=== PATIENT | female | born 1990 | race Hispanic/Latino ===

== ENCOUNTER 2017-09-23 16:24 | Emergency (ER) | payer OTHER ==
[2017-09-23 16:44] VITALS: BMI 24.5
[2017-09-23 16:48] VITALS: RESP 18
[2017-09-23] MEDS ORDERED: Sodium Chloride 0.9% 1,000 ML IV STA (17:29)
[2017-09-23 17:58] LABS: URINE BILIRUBIN MODERATE (NEGATIVE); URINE BLOOD LARGE (NEGATIVE); URINE GLUCOSE (UA) NEGATIVE (NEGATIVE); URINE KETONE TRACE mg/dL (NEGATIVE); URINE LEUKOCYTE ESTERASE NEGATIVE Leu/uL (NEGATIVE); URINE PROTEIN >=300 mg/dL (<30 mg/dL)
[2017-09-23 18:03] LABS: URINE APPEARANCE SL CLOUDY (CLEAR); URINE COLOR DARK YELLOW (YELLOW)
--- NOTE | 2017-09-23 18:09 | ED PDOC ---
Arrival/HPI - General Chief Complaint: Female Genitourinary Time Seen by Provider: 09/23/17 17:01 Historian: Patient - History of Present Illness Narrative History of Present Illness (Text): 09/23/17 18:06 26 yo F complains of 5 day h/o vaginal bleeding associated with intermittent lower abdominal pain, mostly in the LLQ, associated with nausea and multiple episodes of vomiting, states that she vomited 7 x today. States that she had a c -section 5 months ago and a tubal ligation, concerned that she could be at this time. Otherwise: (-) recent travel, (-) diarrhea, (+) tactle fever 3 days ago, (+) dysuria, (-) sick contacts, (-) eat any food that could cause her current symptoms, (-) vaginal d/c, (-) melena, (-) hematochezia. Has history of prior abdominal surgery. PMD Iggy Past Medical History - Provider Review Nursing Documentation Reviewed: Yes - Infectious Disease Hx of Infectious Diseases: None - Psychiatric Hx Depression: No Hx Emotional Abuse: No Hx Physical Abuse: No Hx Substance Use: Yes (CANNABIS) - Surgical History Hx Section: Yes (x2) Hx Dilation and Curettage: Yes (x1) Hx Tubal Ligation: Yes - Anesthesia Hx Anesthesia: Yes Hx Anesthesia Reactions: No Hx Malignant Hyperthermia: No - Suicidal Assessment Feels Threatened In Home Enviroment: No Family/Social History - Physician Review Nursing Documentation Reviewed: Yes Family/Social History: Unknown Family HX Smoking Status: Heavy Smoker > 10 Cigarettes Daily Hx Alcohol Use: No Hx Substance Use: Yes (CANNABIS) Hx Substance Use Treatment: No Allergies/Home Meds Allergies/Adverse Reactions: Allergies No Known Allergies Allergy (Verified 10/30/16 00:49) Review of Systems - Review of Systems Constitutional: absent: Fatigue, Weight Change, Fevers ENT: absent: Sore Throat, Rhinorrhea, Epistaxis Respiratory: absent: SOB, Cough, Sputum Cardiovascular: absent: Chest Pain, Palpitations, Edema Gastrointestinal: Abdominal Pain, Nausea, Vomiting. absent: Constipation, Appetite Changes Genitourinary Female: Dysuria, Vaginal Bleeding. absent: Frequency, Hematuria Musculoskeletal: absent: Arthralgias, Back Pain, Neck Pain Skin: absent: Rash, Pruritis, Skin Lesions Neurological: absent: Headache, Dizziness, Focal Weakness Physical Exam - Physical Exam Narrative Physical Exam (Text): 09/23/17 18:04 GENERAL APPEARANCE: Patient is awake, alert, oriented x 3, is anxious, in no acute painful distress, laying in bed comfortably. SKIN: Warm, dry; (-) cyanosis, (-) jaundice. EYES: (-) conjunctival pallor, (-) scleral icterus. ENMT: Mucous membranes dry. NECK: (-) tenderness, (-) stiffness, (-) lymphadenopathy. CHEST AND RESPIRATORY: (-) rales, (-) rhonchi, (-) wheezes; breath sounds equal bilaterally. HEART AND CARDIOVASCULAR: (-) irregularity; (-) murmur, (-) gallop. ABDOMEN AND GI: (-) distention. Bowel sounds active; (+) mild LLQ tenderness to deep palpation, (-) Mayfield's, (-) McBurney's, (-) guarding, (-) rebound, (-) palpable masses, (-) CVA tenderness. EXTREMITIES: (-) deformity, (-) edema, (+) distal pulses. NEURO AND PSYCH: Mental status as above; (-) focal findings. Vital Signs Temp Pulse Resp BP Pulse Ox 09/23/17 16:47 98.1 F 81 18 122/85 95 Medical Decision Making ED Course and Treatment: 09/23/17 18:09 26 yo F complains of 5 day h/o vaginal bleeding associated with intermittent lower abdominal pain, associated with nausea and multiple episodes of vomiting, states that she vomited 7 x today. [facility] [place] Plan: -- Labs -- IV fluids -- Urinalysis -- Pepcid / Zofran / Toradol -- Reassess and disposition Labs reviewed : wbc 6.2, K 3.0, AST 188, ALT 170, Alk Phos 145, (in March 2012 patient's LFTs was AST 77, ALT 89) T bili 1.1, lipase wnl, beta quant (-), UA shows +proteins, +nitrate. Patient given KCl 40 mEq PO for low K, Rocephin 1 g IV for UTI, zofran IV 4 mg for mild nausea. On re-evaluation, patient is sitting up in bed comfortably in no acute distress , reports no abdominal pain or nausea at this time. On exam, abdomen remains soft with no tenderness, no guarding, no rebound, neg yudi'ys sign. Diagnostic results d/w the patient, she was notified that her LFTs are elevated and that she has proteins in her urine. Patient advised that she must f/u with her pmd regarding her elevated LFTs and +proteins in the urine for further evaluation. Advised to take medication as prescribed. Return to the emergency room at any time for any new or worsening symptoms. Patient states she fully agrees with and understands discharge instructions. States that she agrees with the plan and disposition. Verbalized and repeated discharge instructions and plan. I have given the patient opportunity to ask any additional questions. - Lab Interpretations Lab Results: 09/23/17 18:15 09/23/17 18:15 Lab Results 09/23/17 18:15: Beta HCG, Quant < 2.39 09/23/17 18:15: Sodium 141, Potassium 3.0 L, Chloride 98, Carbon Dioxide 26, Anion Gap 20, BUN 11, Creatinine 0.7, Est GFR ( Amer) > 60, Est GFR (Non- Af Amer) > 60, Random Glucose 95, Calcium 9.9, Total Bilirubin 1.1, AST 188 H, ALT 170 H, Alkaline Phosphatase 145 H, Total Protein 8.8 H, Albumin 4.8, Globulin 3.9, Albumin/Globulin Ratio 1.2, Lipase 46 09/23/17 18:15: PT 13.5 H, INR 1.23 H, APTT 29.8 09/23/17 18:15: WBC 6.2, RBC 5.14, Hgb 15.3, Hct 42.5, MCV 82.7, MCH 29.8, MCHC 36.0, RDW 13.3, Plt Count 275, MPV 10.0, Gran % 57.5, Lymph % (Auto) 29.5, Nolan % (Auto) 12.0 H, Eos % (Auto) 0.2 L, Baso % (Auto) 0.8, Gran # 3.59, Lymph # 1.8 , Nolan # 0.8 H, Eos # 0.0, Baso # 0.05 09/23/17 17:50: Urine Color Dark yellow, Urine Appearance Sl cloudy, Urine pH 6.0, Ur Specific D[place] >= 1.030, Urine Protein >=300 H, Urine Glucose (UA) Negative, Urine Ketones Trace H, Urine Blood Large H, Urine Nitrate Positive H, Urine Bilirubin Moderate H, Urine Urobilinogen 4.0 H, Ur Leukocyte Esterase Negative, Urine RBC 0 - 2, Urine WBC 1 - 3, Ur Epithelial Cells Many, Urine Bacteria Mod - Medication Orders Current Medication Orders: Discontinued Medications Famotidine (Pepcid) 20 mg IVP STAT STA Stop: 09/23/17 17:30 Last Admin: 09/23/17 18:24 Dose: 20 mg IVP Administration Document 09/23/17 18:24 RG (Rec: 09/23/17 18:[id number]) Charges for Administration # of IVP Administrations 1 Sodium Chloride (Sodium Chloride 0.9%) 1,000 mls @ 1,000 mls/hr IV .Q1H STA Stop: 09/23/17 18:28 Last Admin: 09/23/17 18:24 Dose: 1,000 mls/hr eMAR Start Stop Document 09/23/17 18:24 RG (Rec: 09/23/17 18:[id number]) Intravenous Solution Start Date 09/23/17 Start Time 18:25 End Date 09/23/17 Ceftriaxone Sodium (Rocephin 1 Gram Ivpb) 1 gm in 100 mls @ 200 mls/hr IVPB STAT STA PRN Reason: Protocol Stop: 09/23/17 20:11 Last Admin: 09/23/17 20:07 Dose: 200 mls/hr eMAR Start Stop Document 09/23/17 20:07 RG (Rec: 09/23/17 20:[id number]) Intravenous Solution Start Date 09/23/17 Start Time 20:07 End Date 09/23/17 Ketorolac Tromethamine (Toradol) 30 mg IVP STAT STA Stop: 09/23/17 17:30 Last Admin: 09/23/17 18:23 Dose: 30 mg MAR Pain Assessment Document 09/23/17 18:23 RG (Rec: 09/23/17 18:[id number]) Pain Reassessment Is this a pain reassessment? Yes Description Description Constant Intensity of Pain at present 6 Pain Behavior Moaning IVP Administration Document 09/23/17 18:23 RG (Rec: 09/23/17 18:24 [place] [id number]) Charges for Administration # of IVP Administrations 1 Re-Assess: BERNARDA Pain Assessment Document 09/23/17 19:23 (Rec: 09/23/17 20:08 [id number]) Pain Reassessment Is this a pain reassessment? Yes Presence of Pain Presence of Pain Yes Pain Scale Used Pain Scale Used Numeric Description Description Intermittent Intensity of Pain at present 4 Ondansetron HCl (Zofran Inj) 4 mg IVP STAT STA Stop: 09/23/17 17:30 Last Admin: 09/23/17 18:17 Dose: 4 mg IVP Administration Document 09/23/17 18:17 RG (Rec: 09/23/17 18:22 [id number]) Charges for Administration # of IVP Administrations 1 Potassium Chloride (Potassium Chloride Oral Soln) 40 meq PO STAT STA Stop: 09/23/17 19:42 Last Admin: 09/23/17 20:07 Dose: 40 meq - PA / 3D ARTIST / Resident Statement /DO has reviewed & agrees with the documentation as recorded. Disposition/Present on Arrival - Present on Arrival Any Indicators Present on Arrival: No History of DVT/PE: No History of Uncontrolled Diabetes: No Urinary Catheter: No History of Decub. Ulcer: No History Surgical Site Infection Following: None - Disposition Have Diagnosis and Disposition been Completed?: Yes Diagnosis: Abdominal pain, Vomiting, test negative, Elevated LFTs, UTI (urinary tract infection) Disposition: HOME/ ROUTINE Disposition Time: 20:00 Patient Plan: Discharge Patient Problems: Current Active Problems Problem Status Onset Abdominal pain Acute Vomiting Acute test negative Acute Elevated LFTs Acute UTI (urinary tract infection) Acute Condition: IMPROVED Discharge Instructions (ExitCare): Urinary Tract Infection in Women (DC), Acute Nausea and Vomiting (ED), Acute Abdominal Pain (ED) Print Language: CHADIAN Additional Instructions: Thank you for letting us take care of you today. You were treated for abdominal pain, vomiting, UTI. The emergency medical care you received today was directed at your acute symptoms. If you were prescribed any medication, please fill it and take as directed. It may take several days for your symptoms to resolve. Return to the Emergency Department if your symptoms worsen, do not improve, or if you have any other problems. Please contact your doctor in 2 days for re-evaluation and follow up. Bring any paperwork you were given at discharge with you along with any medications you are taking to your follow up visit. Our treatment cannot replace ongoing medical care by a primary care provider (PCP) outside of the emergency department. Thank you for allowing the [facility] team to be part of your care today. You were found to have elevated LFTs - please follow this up with your pmd for further evaluation. You were found to have proteins in your urine - please follow this up with your pmd for further evaluation. Prescriptions: Nitrofurantoin Macrocrystals [Macrobid] 100 mg PO BID #14 cap Ondansetron ODT [Zofran ODT] 4 mg PO DAILY PRN #20 odt PRN Reason: Nausea/Vomiting Referrals: Margaret Parkinson DO [Primary Care Provider] - Follow up with primary Forms: [employer] (Micronesian), WORK NOTE
[2017-09-23 18:27] LABS: URINE RBC 0 - 2 /hpf (0-2)
[2017-09-23 18:28] LABS: URINE BACTERIA MOD (NEG); URINE EPITHELIAL CELLS MANY /hpf (0-5)
[2017-09-23 19:13] LABS: BASO # 0.05 K/mm3 (0.0-2.0); BASO % 0.8 % (0.0-3.0); EOS % 0.2 % (1.5-5.0); GRAN # 3.59 (1.4-6.5); GRAN % 57.5 % (50.0-68.0); HEMATOCRIT 42.5 % (36.0-48.0); LYMPH # 1.8 (1.2-3.4); LYMPH % 29.5 % (22.0-35.0); MEAN CELL VOLUME 82.7 fl (80.0-105.0); MEAN CORPUSCULAR HEMOGLOBIN 29.8 pg (25.0-35.0); MONO # 0.8 (0.1-0.6); RED CELL DISTRIBUTION WIDTH 13.3 % (11.5-14.5); WHITE BLOOD COUNT 6.2 10^3/ul (4.5-11.0)
[2017-09-23 19:27] LABS: INR 1.23 (0.93-1.08); PARTIAL THROMBOPLASTIN TIME 29.8 Seconds (25.1-36.5)
[2017-09-23 19:31] LABS: ALB/GLOB RATIO 1.2 (1.1-1.8); ALKALINE PHOSPHATASE 145 U/L (38-126); ALT/SGPT 170 U/L (7-56); AST/SGOT 188 U/L (14-36); BILIRUBIN,TOTAL 1.1 mg/dL (0.2-1.3); BLOOD UREA NITROGEN 11 mg/dL (7-21); CALCIUM 9.9 mg/dL (8.4-10.5); CARBON DIOXIDE 26 mmol/L (21-33); CHLORIDE 98 mmol/L (98-107); GFR AFRICAN-AMERICAN > 60; GLUCOSE,RANDOM 95 mg/dL (70-110); LIPASE 46 U/L (23-300); SODIUM 141 mmol/L (132-148); TOTAL PROTEIN 8.8 g/dL (5.8-8.3)
[2017-09-23] MEDS ORDERED: Potassium Chloride 20 mEq/15 ml LIQ UD PO STA (19:41)
[2017-09-23] MEDS ORDERED: cefTRIAXone 1 gm 1 GM/100 ML BAG IVPB STA (19:42)
[2017-09-23 20:39] VITALS: BP 109/83; PULSE 80; TEMP 98.5; O2SAT 100
== END 2017-09-23 20:50 | disposition home or self-care (01) ==
LOC: ED 16:24
DX: N39.0 Urinary tract infection, site not specified (principal); Z32.02 Encounter for pregnancy test, result negative; R11.2 Nausea with vomiting, unspecified; R10.9 Unspecified abdominal pain; F17.210 Nicotine dependence, cigarettes, uncomplicated
CPT/HCPCS: 80053; 81001; 83690; 84702; 85025; 85610; 85730; 87086; 96374; 96375; 96376; 99285; J1885; J2405; J7040